=== PATIENT | female | born 1980 | race Caucasian/White ===

== ENCOUNTER 2017-01-01 16:13 | Emergency (ER) | payer SELFPAY ==
--- NOTE | ~2017-01-01 | ER ---
PATIENT'S NAME: STEPHEN [facility] AGE: 36 Y [address] ROOM: [place] [id number] LOCATION: [facility] ADMIT DATE: 01/01/2017 ER/Outpatient Report DISCHARGE DATE: 01/01/2017 FAMILY PHYSICIAN: PHYSICIAN, NO ATTENDING PHYSICIAN: Farhat العراقي Time of Arrival: 1619 hours. Time of Exam: 1619 hours. CHIEF COMPLAINT: Cough. HISTORY OF PRESENT ILLNESS: The patient states that she has been sick since , 12/28/2016, has had shortness of breath, cough of productive of clear yellow type fluids, has had chills. States she has been nauseated and spitting up sputum. ALLERGIES: NO KNOWN DRUG ALLERGIES. DOES HAVE SEASONAL ALLERGIES. MEDICATIONS: She is supposed to be on atenolol, but has been out of it for greater than 6 months. PAST MEDICAL HISTORY: Asthma, hypertension, and vertigo. 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 SOCIAL HISTORY: She does smoke 3/4 of a pack per day. Drinks alcohol on a social basis. Smokes marijuana occasionally. No other drug use. REVIEW OF SYSTEMS: All negative other than those mentioned in the HPI. PHYSICAL EXAMINATION: VITAL SIGNS: She weighed 80.9 kg. Blood pressure 157/88, pulse of 88, respirations 20, temperature of 98.1, and O2 saturation is 97% on room air. GENERAL: She is awake, alert, and oriented x4. SKIN: [place], warm, and dry. RESPIRATIONS: Even and nonlabored. Lung sounds are coarse throughout, would clear with cough. No wheezing is noted. PATIENT'S NAME: STEPHEN [facility] AGE: 36 Y [address] ROOM: [place], [place] [address] LOCATION: [facility] ADMIT DATE: 01/01/2017 ER/Outpatient Report DISCHARGE DATE: 01/01/2017 FAMILY PHYSICIAN: PHYSICIAN, NO ATTENDING PHYSICIAN: Farhat العراقي HEART: Regular rate and rhythm. DIAGNOSTIC DATA: Chest x-ray was completed, no acute process noted. IMPRESSION: Bronchitis. PLAN: Home. Rest. Fluids. Prescription was written for azithromycin and prednisone. A note was written for work. She is to follow up with her primary provider in 2-3 days. Return to the ER as needed. She verbalized understanding. RASHARD OCONNELL APRN FOR [employer]/modl /[id number] d: 01/01/17 1756 t: 01/04/17 1404, OUTPATIENT REPORT
== END 2017-01-01 16:54 | disposition disaster alternative care site (69) ==
LOC: GMED 16:13
DX: J40 Bronchitis, not specified as acute or chronic (principal); I10 Essential (primary) hypertension; R42 Dizziness and giddiness; F17.210 Nicotine dependence, cigarettes, uncomplicated; Z90.721 Acquired absence of ovaries, unilateral; Z90.49 Acquired absence of other specified parts of digestive tract; Z98.890 Other specified postprocedural states; Z98.51 Tubal ligation status; Z79.899 Other long term (current) drug therapy